=== PATIENT | male | born 1960 | race Caucasian/White ===

== ENCOUNTER 2021-12-23 06:05 | Outpatient (CLI) | payer SELFPAY ==
[2021-12-23 07:29] LABS: ALT (SGPT) 24 U/L (8-55); AST (SGOT) 17 U/L (5-34); Albumin 4.1 g/dL (3.5-5.0); Alkaline Phosphatase 53 U/L (40-110); Anion Gap 14 mmol/L (10-20); BUN (Urea Nitrogen) 15 mg/dL (8.4-25.7); Bilirubin, Total 0.6 mg/dL (0.2-1.2); Calc. Creatinine Clearance 0 mL/min (70-130); Calcium 8.5 mg/dL (7.8-10.44); Carbon Dioxide 25 mmol/L (22-29); Cardiac Risk 4.2 (Less than 4.5); Chloride 106 mmol/L (98-107); Cholesterol 135 mg/dl (< 200 Desired); Globulin 2.3 g/dL (2.4-3.5); Glucose 108 mg/dL (70-105); HDL Cholesterol 32 mg/dL (>60 Neg Risk); LDL Cholesterol, Calculated 82 mg/dL; Potassium 3.8 mmol/L (3.5-5.1); Protein, Total 6.4 g/dL (6.0-8.3); Sodium 141 mmol/L (136-145); Triglycerides 103 mg/dL (Less than 150)
[2021-12-23 11:20] LABS: Hemoglobin A1c 5.6 % (4.0-6.0)
== END 2021-12-23 06:06 | disposition home or self-care (01) ==
LOC: MADLAB 06:05
PROVIDERS: ATTEND Family Medicine
DX: E11.9 Type 2 diabetes mellitus without complications (principal)
CPT/HCPCS: 36415; 80053; 80061; 83036